=== PATIENT | male | born 1990 | race African-American/Black ===

== ENCOUNTER 2016-12-28 13:19 | Emergency (ER) | payer SELFPAY ==
[~2016-12-28] VITALS: Ht 177.8 cm; Wt 75.0 kg
[2016-12-28 13:20] VITALS: BP 134/76; PULSE 94; RESP 16; TEMP 98.6; O2SAT 98
[2016-12-28] MEDS ORDERED: BACT800T5 PO (14:59)
[2016-12-28] MEDS ORDERED: CEPH-460 PO (14:59)
--- NOTE | 2016-12-28 15:00 | PD ---
HPI . Left thigh abscess Chief Complaint: Bite or Sting Time Seen by Provider: 14:51 Travel History International Travel<30 days: No Contact w/Intl Traveler<30days: No Traveled to known affect area: No History of Present Illness HPI 26-year-old male patient presents emergency department for evaluation of a left thigh abscess. Patient reports that it started as a bug bite couple days ago. Patient denies any fevers, chills, malaise. Patient denies any chest pain, shortness breath. Patient denies any abdominal pain, nausea, vomiting or diarrhea. PFSH Social History Alcohol Use: No Tobacco Use: No Substance Use: No Allergies-Medications (Allergen,Severity, Reaction): Coded Allergies: No Known Allergies (Unverified , 12/28/16) Reported Meds & Prescriptions Reported Meds & Active Scripts Active Keflex (Cephalexin) 500 Mg Capsule 500 Mg PO Q6H 10 Days Bactrim DS (Sulfamethoxazole-Trimethoprim) 800-160 Mg Tab 1 Tab PO BID 10 Days Review of Systems Except as stated in HPI: all other systems reviewed are Neg Physical Exam Narrative GENERAL: Well-nourished, well-developed 26-year-old male patient in no acute distress. Nontoxic appearing. SKIN: There is an indurated area in the left thigh which measures about 3 cm in diameter. It is fluctuant with purulent drainage coming from the center. There is a zone of inflammation around it but no lymphangitis. HEAD: Normocephalic. Atraumatic. EYES: No scleral icterus. No injection or drainage. NECK: Supple, trachea midline. No JVD or lymphadenopathy. CARDIOVASCULAR: Regular rate and rhythm without murmurs, gallops, or rubs. RESPIRATORY: Breath sounds equal bilaterally. No accessory muscle use. GASTROINTESTINAL: Abdomen soft, non-tender, nondistended. MUSCULOSKELETAL: No cyanosis, or edema. Data Data Last Documented VS Vital Signs Date Time Temp Pulse Resp B/P (MAP) Pulse Ox O2 Delivery O2 Flow Rate FiO2 12/28/16 15:07 12/28/16 13:20 98.6 94 16 98 Orders Orders Wound Culture And Gram Stain (12/28/16 15:00) MDM Medical Decision Making Medical Screen Exam Complete: Yes Emergency Medical Condition: Yes Differential Diagnosis Differential diagnoses include but not limited to cellulitis, abscess, laceration, abrasion Narrative Course 26-year-old male patient presents emergency department for evaluation of his abscess to the left inner thigh that is approximately 3 cm in diameter. There is an area of fluctuation that is draining purulent drainage from the center. Wound culture is obtained and sent to lab. Patient denies any major medical history. Patient is afebrile. Patient is treated with Keflex and Bactrim and discharged home with instructions to follow-up with his primary care or return to the emergency Department with any worsening condition. Diagnosis Primary Impression: Abscess Referrals: Primary Care Physician Patient Instructions: Abscess (ED), General Instructions Additional Instructions: Please return to emergency department if your symptoms return or worsen. Follow up with your primary care provider. Take medications as prescribed. Warm moist compress to the area may help facilitate drainage. May take ibuprofen as needed for pain or fevers. Med/Other Pt SpecificInfo: Prescription(s) given Scripts Cephalexin (Keflex) 500 Mg Capsule 500 MG PO Q6H for Infection for 10 Days, #40 CAP 0 Refills Prov: Marychuy Guerin 12/28/16 Sulfamethoxazole-Trimethoprim (Bactrim DS) 800-160 Mg Tab 1 TAB PO BID for Infection for 10 Days, #20 TAB 0 Refills Prov: Marychuy Guerin 12/28/16 Disposition: 01 DISCHARGE HOME Condition: Stable Marychuy Guerin Dec 28, 2016 15:00
== END 2016-12-28 15:10 | disposition home or self-care (01) ==
LOC: NEPK 13:19
DX: L02.416 Cutaneous abscess of left lower limb (principal); B95.62 Methicillin resistant Staphylococcus aureus infection as the cause of diseases classified elsewhere
CPT/HCPCS: 86403; 87070; 87185; 87186; 99284

== ENCOUNTER 2017-01-05 19:26 | Emergency (ER) | payer SELFPAY ==
[~2017-01-05] VITALS: Ht 177.8 cm; Wt 70.0 kg
[~2017-01-05 19:26] MED LIST: BACT800T5 PO; CEPH-460 PO
[2017-01-05 19:27] VITALS: BP 144/89; PULSE 93; RESP 16; TEMP 99; O2SAT 100
--- NOTE | 2017-01-05 20:04 | PD ---
HPI Chief Complaint: Skin Problem Time Seen by Provider: 19:46 Travel History International Travel<30 days: No Contact w/Intl Traveler<30days: No Traveled to known affect area: No History of Present Illness HPI 26-year-old white male returns to the ER for recheck of the left leg abscess. He states that the area has opened up and drained. He is taking only the one antibiotic as he could not afford the second antibiotic. He denies any fever chills. He states that there is no longer any purulent drainage. He still has a hole in his leg. Symptoms are mild. PFSH Past Medical History Medical History: Denies Significant Hx Tetanus Vaccination: Unknown Social History Alcohol Use: Yes (RARE) Tobacco Use: Yes (1/2 PPD) Substance Use: No Allergies-Medications (Allergen,Severity, Reaction): Coded Allergies: No Known Allergies (Unverified , 01/05/17) Reported Meds & Prescriptions Reported Meds & Active Scripts Active Keflex (Cephalexin) 500 Mg Capsule 500 Mg PO Q6H 10 Days Bactrim DS (Sulfamethoxazole-Trimethoprim) 800-160 Mg Tab 1 Tab PO BID 10 Days Review of Systems General / Constitutional: No: Fever Eyes: No: Visual changes HENT: No: Headaches Cardiovascular: No: Chest Pain or Discomfort Respiratory: No: Shortness of Breath Gastrointestinal: No: Abdominal Pain Genitourinary: No: Dysuria Musculoskeletal: No: Pain Skin: No Rash Neurologic: No: Weakness Psychiatric: No: Depression Endocrine: No: Polydipsia Hematologic/Lymphatic: No: Easy Bruising Physical Exam Narrative GENERAL: This is a well-nourished, well-developed patient, in no apparent distress. SKIN: No rashes, ecchymoses or lesions. Warm and dry. HEAD: Atraumatic. Normocephalic. EYES: PERRL, EOMI, no discharge or injection. No scleral icterus. EARS: Clear NOSE: Nasal turbinates appear normal. THROAT: Mucosa pink and moist. Airway patent. NECK: Trachea midline. supple, moves head freely. LUNGS: Clear to auscultation. CV: Regular in rhythm. ABDOMEN: Soft nontender. EXT: No clubbing cyanosis or edema. Patient has a healing abscess to the inner aspect of his left leg mid thigh. There is a open draining healing abscess without purulence. No surrounding erythema. Only minimal tenderness. Data Data Last Documented VS Vital Signs Date Time Temp Pulse Resp B/P (MAP) Pulse Ox O2 Delivery O2 Flow Rate FiO2 01/05/17 19:27 99.0 93 16 144/89 (107) 100 Room Air MDM Medical Decision Making Medical Screen Exam Complete: Yes Emergency Medical Condition: Yes Medical Record Reviewed: Yes Differential Diagnosis MDM: High Differential diagnoses: Abscess, folliculitis, cellulitis, lymphangitis, abrasion, contact dermatitis Narrative Course This is healing abscess Diagnosis Primary Impression: healing abscess Patient Instructions: General Instructions Additional Instructions: Rest. Elevation. keep clean and dry. Warm compresses. Daily wound care with soap, water and Neosporin. Three Advil every 6 hours. Finish your antibiotics. Follow-up with a primary care doctor in one week. Return to the ER for any problems. Med/Other Pt SpecificInfo: No Change to Meds Disposition: 01 DISCHARGE HOME Condition: Stable Pawan Srinivasan Jan 05, 2017 20:04
== END 2017-01-05 20:15 | disposition home or self-care (01) ==
LOC: NEPD 19:26
DX: L02.416 Cutaneous abscess of left lower limb (principal)
CPT/HCPCS: 99281

== ENCOUNTER 2017-01-21 12:49 | Emergency (ER) | payer OTHER ==
[~2017-01-21] VITALS: Ht 177.8 cm; Wt 70.0 kg
[2017-01-21 12:50] VITALS: BP 130/80; PULSE 92; RESP 16; TEMP 98.7; O2SAT 99
[2017-01-21] MEDS ORDERED: MORPHINE SULFATE 4 MG/ML INJ IV PUSH ONE (13:45)
[2017-01-21] MEDS ORDERED: ONDANSETRON HCL 4 MG/2 ML VIAL IVP ONE (13:45)
[2017-01-21] MEDS ORDERED: SODIUM CHLORIDE 0.9% FLUSH 10 ML FLUSH IV FLUSH PRN (13:45)
--- NOTE | 2017-01-21 13:57 | PD ---
HPI . Rectal pain Chief Complaint: GI Complaint Time Seen by Provider: 13:33 Travel History International Travel<30 days: No Contact w/Intl Traveler<30days: No Traveled to known affect area: No History of Present Illness HPI Patient presents with a chief complaint of rectal pain. Onset was a week ago. He states that he had a previous perirectal abscess probably about a year ago. He states that it was drained in the operating room. He states that he has had continual leakage of purulent fluid from his rectum since that time. It just started hurting again about a week ago. He denies fever. He notes no modifying factors. He does state that he has associated constipation. He denies any nausea or vomiting and states that he is eating well. He denies any urinary tract symptoms. He rates the pain 8/10. PFSH Past Medical History Integumentary: Yes (perianal abscess) Social History Alcohol Use: Yes (RARE) Tobacco Use: Yes (1/2 PPD) Substance Use: No Allergies-Medications (Allergen,Severity, Reaction): Coded Allergies: No Known Allergies (Unverified , 01/05/17) Reported Meds & Prescriptions Reported Meds & Active Scripts Active Keflex (Cephalexin) 500 Mg Capsule 500 Mg PO Q6H 10 Days Bactrim DS (Sulfamethoxazole-Trimethoprim) 800-160 Mg Tab 1 Tab PO BID 10 Days Review of Systems Except as stated in HPI: all other systems reviewed are Neg General / Constitutional: No: Fever, Chills Gastrointestinal: Positive: Constipation, Other (anal pain), No: Nausea, Vomiting, Diarrhea, Abdominal Pain, Loss of Appetite Genitourinary: No: Urgency, Frequency, Dysuria Physical Exam Narrative GENERAL: Awake and alert and in no acute distress. SKIN: warm/dry. HEAD: Normocephalic. Atraumatic. EYES: Pupils equal and round. No scleral icterus. No injection or drainage. ENT: No nasal bleeding or discharge. Mucous membranes pink and moist. NECK: Trachea midline. Full range of motion without pain.. CARDIOVASCULAR: Regular rate and rhythm. RESPIRATORY: No accessory muscle use. Clear to auscultation. Breath sounds equal bilaterally. GASTROINTESTINAL: Abdomen soft. Nontender. Bowel sounds present. Nondistended. RECTAL: Inspection of the anus is normal. Digital exam is tender. No masses palpated. Brown stool in the rectal vault. No perirectal fluctuance. MUSCULOSKELETAL: No obvious deformities. NEUROLOGICAL: Awake and alert. No obvious cranial nerve deficits. Motor grossly within normal limits. Normal speech. PSYCHIATRIC: Appropriate mood and affect; insight and judgment normal. Data Data Last Documented VS Vital Signs Date Time Temp Pulse Resp B/P (MAP) Pulse Ox O2 Delivery O2 Flow Rate FiO2 01/21/17 14:54 18 01/21/17 12:50 98.7 92 130/80 (97) 99 Orders Orders Basic Metabolic Panel (Bmp) (01/21/17 13:45) Complete Blood Count With Diff (01/21/17 13:45) Ct Abd/Pel W Iv Contrast(Rout) (01/21/17 13:45) Iv Access Insert/Monitor (01/21/17 13:45) Morphine Inj (Morphine Inj) (01/21/17 13:45) Ondansetron Inj (Zofran Inj) (01/21/17 13:45) Sodium Chloride 0.9% Flush (Ns Flush) (01/21/17 13:45) Iohexol 350 Inj (Omnipaque 350 Inj) (01/21/17 14:33) Labs Laboratory Tests Test 01/21/17 13:45 White Blood Count 1.5 TH/MM3 Red Blood Count 4.55 MIL/MM3 Hemoglobin 12.0 GM/DL Hematocrit 36.4 % Mean Corpuscular Volume 80.0 FL Mean Corpuscular Hemoglobin 26.4 PG Mean Corpuscular Hemoglobin Concent 33.0 % Red Cell Distribution Width 16.2 % Platelet Count 149 TH/MM3 Mean Platelet Volume 8.1 FL Neutrophils (%) (Auto) 68.8 % Lymphocytes (%) (Auto) 15.1 % Monocytes (%) (Auto) 14.7 % Eosinophils (%) (Auto) 0.8 % Basophils (%) (Auto) 0.6 % Neutrophils # (Auto) 1.1 TH/MM3 Lymphocytes # (Auto) 0.2 TH/MM3 Monocytes # (Auto) 0.2 TH/MM3 Eosinophils # (Auto) 0.0 TH/MM3 Basophils # (Auto) 0.0 TH/MM3 CBC Comment AUTO DIFF Differential Total Cells Counted 100 Neutrophils % (Manual) 68 % Band Neutrophils % 2 % Lymphocytes % 14 % Monocytes % 16 % Neutrophils # (Manual) 1.1 TH/MM3 Differential Comment FINAL DIFF MANUAL Platelet Estimate LOW Platelet Morphology Comment NORMAL Tear Drop Cells 1+ Ovalocytes 3+ Blood Urea Nitrogen 10 MG/DL Creatinine 0.78 MG/DL Random Glucose 76 MG/DL Calcium Level 8.4 MG/DL Sodium Level 139 MEQ/L Potassium Level 3.4 MEQ/L Chloride Level 104 MEQ/L Carbon Dioxide Level 28.4 MEQ/L Anion Gap 7 MEQ/L Estimat Glomerular Filtration Rate 145 ML/MIN [facility] Medical Decision Making Medical Screen Exam Complete: Yes Emergency Medical Condition: Yes Medical Record Reviewed: Yes (the patient has only been seen here before for peripheral abscesses. He has not been seen at this facility for perirectal issues.) Differential Diagnosis Differential diagnosis of rectal pain includes but is not limited to external hemorrhoid,, rectal foreign body, impaction Narrative Course Patient presents with a chief complaint of rectal pain. His anus looks normal. He does have tenderness on digital exam. His stool is Hemoccult positive. Basic labs have been ordered as well as a CT of his abdomen and pelvis. Disposition will be based upon the results of these tests. Negative CT abdomen/pelvis with contrast. CBC & BMP Diagram 01/21/17 13:45 Calcium Level 8.4 L HemaPrompt Point of Care Internal Pos. & Neg. Controls: Passed Fecal Specimen Occult Blood: Positive Diagnosis Primary Impression: Rectal pain Additional Impression: Neutropenia Qualified Codes: D70.9 - Neutropenia, unspecified Referrals: [facility] Med/Other Pt SpecificInfo: Prescription(s) given Scripts Dibucaine Rectal (Nupercainal Rectal) 1 % Oin 1 APPLIC RECTAL DIRECTED Y for PAIN/ITCHING, #1 TUBE 0 Refills Prov: Emily Bray MD 01/21/17 Disposition: DISCHARGE HOME Condition: Stable Emily Bray MD Jan 21, 2017 13:57
[2017-01-21 14:10] LABS: AUTOMATED NEUTROPHIL # 1.1 TH/MM3 (1.8-7.7); BASOPHIL % 0.6 % (0.0-2.0); EOSINOPHIL % 0.8 % (0.0-4.0); HEMATOCRIT 36.4 % (39.0-51.0); LYMPH % 15.1 % (9.0-44.0); LYMPHOCYTE # 0.2 TH/MM3 (1.0-4.8); MEAN CORPUSCULAR HEMOGLOBIN 26.4 PG (27.0-34.0); MONO % 14.7 % (0.0-8.0); NEUT % 68.8 % (16.0-70.0); PLATELET COUNT 149 TH/MM3 (150-450); RED BLOOD COUNT 4.55 MIL/MM3 (4.50-5.90); RED CELL DISTRIBUTION WIDTH 16.2 % (11.6-17.2); WHITE BLOOD COUNT 1.5 TH/MM3 (4.0-11.0)
[2017-01-21 14:14] LABS: HEMO FLAGS AUTO DIFF
[2017-01-21 14:15] LABS: BICARBONATE 28.4 MEQ/L (21.0-32.0); POTASSIUM 3.4 MEQ/L (3.5-5.1)
[2017-01-21] MEDS ORDERED: IOHEXOL 350 MG/ML 10 ML VIAL (for RAD DIAG) IVCONTRAST ONE (14:33)
[2017-01-21 14:52] LABS: BANDS 2 % (0-6); NEUTROPHIL # MANUAL DIFF 1.1 TH/MM3 (1.8-7.7); OVALOCYTES 3+ (NORMAL); PLATELET ESTIMATE SMEAR LOW (NORMAL); PLATELET MORPHOLOGY NORMAL (NORMAL); POLYS (SEG NEUTROPHILS) 68 % (16-70); SCAN/DIFF FINAL DIFF MANUAL; TEARDROP RBCS 1+ (NORMAL); WBC DIFF SAMPLE 100
[2017-01-21 14:54] VITALS: RESP 18
--- NOTE | 2017-01-21 15:12 | RADRPT ---
EXAM DATE/TIME: 01/21/2017 14:22 [facility] COMPARISON: No previous studies available for comparison. INDICATIONS : Abdomen pain. IV CONTRAST: 70 cc Omnipaque 350 (iohexol) IV ORAL CONTRAST: No oral contrast ingested. RADIATION DOSE: 6.64 CTDIvol (mGy) MEDICAL HISTORY : None SURGICAL HISTORY : None. ENCOUNTER: Initial ACUITY: 1 day PAIN SCALE: 5/10 LOCATION: Bilateral abdomen TECHNIQUE: Volumetric scanning of the abdomen and pelvis was performed. Using automated exposure control and ad justment of the mA and/or kV according to patient size, radiation dose was kept as low as reasonably achievable to obtain optimal diagnostic quality images. DICOM format image data is available electro nically for review and comparison. FINDINGS: LOWER LUNGS: The visualized lower lungs are clear. LIVER: Homogeneous density without lesion. There is no dilation of the biliary tree. No calcified gallston es. SPLEEN: Normal size without lesion. PANCREAS: Within normal limits. KIDNEYS: Normal in size and shape. There is no mass, stone or hydronephrosis. ADRENAL GLANDS: Within normal limits. VASCULAR: There is no aortic aneurysm. BOWEL/MESENTERY: No dilated loops of small or large bowel. No evidence of free fluid. ABDOMINAL WALL: Within normal limits. RETROPERITONEUM: There is no lymphadenopathy. BLADDER: No wall thickening or mass. REPRODUCTIVE: Within normal limits. INGUINAL: There is no lymphadenopathy or hernia. MUSCULOSKELETAL: Within normal limits for patient age. CONCLUSION: Negative CT abdomen/pelvis with contrast. Ross Benjamin MD on January 21, 2017 at 15:09 Board Certified Radiologist. This report was verified electronically.
[2017-01-21] MEDS ORDERED: DIBU10OI RECTAL (15:30)
[2017-01-21 16:08] VITALS: BP 112/64
== END 2017-01-21 16:40 | disposition home or self-care (01) ==
LOC: NEPC 12:49
DX: K62.89 Other specified diseases of anus and rectum (principal); D70.9 Neutropenia, unspecified
CPT/HCPCS: 74177; 80048; 85007; 85027; 96374; 96375; 99285; J2270; J2405; Q9967

== ENCOUNTER 2017-05-22 17:21 | Emergency (ER) | payer SELFPAY ==
[~2017-05-22] VITALS: Ht 177.8 cm; Wt 70.9 kg
[~2017-05-22 17:21] MED LIST changes: +DIBU10OI RECTAL
[2017-05-22 18:05] VITALS: BP 150/79; PULSE 96; RESP 18; TEMP 98.7; O2SAT 99
[2017-05-22] MEDS ORDERED: PENI500T PO (19:02)
[2017-05-22] MEDS ORDERED: PERI0.126 SWISH-SPIT (19:02)
--- NOTE | 2017-05-22 19:11 | PD ---
HPI Chief Complaint: Oral / Dental Pain or Problem Time Seen by Provider: 18:51 Travel History International Travel<30 days: No Contact w/Intl Traveler<30days: No Traveled to known affect area: No History of Present Illness HPI 26-year-old male presents to the emergency room for evaluation of dental pain for the past 2 months. Patient states his tooth broke while he was eating so he yanked on the rest of the loose tooth 2 months ago and removed most of it. Since then he has had a hole in his gums with retained root. Patient reports worsening pain over the past several days. Reports "low-grade fevers" over the past couple days. He has not actually taken his temperature but states he could have been too high because he was still able to move. Patient states that the gums bleed every morning causing him to spit out blood. PFSH Past Medical History Integumentary: Yes (perianal abscess) Social History Alcohol Use: Yes (RARE) Tobacco Use: Yes (1/2 PPD) Substance Use: No Allergies-Medications (Allergen,Severity, Reaction): Coded Allergies: No Known Allergies (Unverified , 01/05/17) Reported Meds & Prescriptions Reported Meds & Active Scripts Active Peridex Liq (Chlorhexidine Gluconate (Mouth) Liq) 0.12% Soln 15 Ml SWISH-SPIT BID Penicillin V Potassium 500 Mg Tab 500 Mg PO Q8H 7 Days Nupercainal Rectal (Dibucaine) 1 % Oin 1 Applic RECTAL DIRECTED PRN Keflex (Cephalexin) 500 Mg Capsule 500 Mg PO Q6H 10 Days Bactrim DS (Sulfamethoxazole-Trimethoprim) 800-160 Mg Tab 1 Tab PO BID 10 Days Review of Systems Except as stated in HPI: all other systems reviewed are Neg Physical Exam Narrative GENERAL: Well-nourished, well-developed male no acute distress. Afebrile. Ambulatory. SKIN: Focused skin assessment warm/dry. HEAD: Normocephalic. EYES: No scleral icterus. No injection or drainage. NECK: Supple, trachea midline. No JVD or lymphadenopathy. DENTAL: No loose or chipped teeth. No malocclusion. Significant decay throughout. Gingiva is erythematous and friable. Tooth #32 is rotten and tender to palpation. CARDIOVASCULAR: Regular rate and rhythm without murmurs, gallops, or rubs. RESPIRATORY: Breath sounds equal bilaterally. No accessory muscle use. Data Data Last Documented VS Vital Signs Date Time Temp Pulse Resp B/P (MAP) Pulse Ox O2 Delivery O2 Flow Rate FiO2 05/22/17 18:05 98.7 96 18 150/79 (102) 99 MDM Medical Decision Making Medical Screen Exam Complete: Yes Emergency Medical Condition: Yes Medical Record Reviewed: Yes Differential Diagnosis Abscess, gingivitis, poor dentition Narrative Course 26-year-old otherwise healthy male presents for dental pain for the past 2 months. States he pulled out a rotten tooth 2 months ago and has had gingival bleeding since then. He has not seen a dentist. Physical exam reveals tooth # 32 to be decayed with retained tooth and surrounding erythema. Tender to palpation. No obvious abscess or edema. No Cl's angina. Patient treated with Peridex and penicillin. Told to follow-up with a dentist or return for worsening symptoms. He understands and agrees to plan. Diagnosis Primary Impression: Dental abscess Referrals: Primary Care Physician Additional Instructions: Rest and drink plenty of fluids. Penicillin and Peridex as directed. Follow-up with a dentist. Return to the emergency room for worsening symptoms. Med/Other Pt SpecificInfo: Prescription(s) given Scripts Chlorhexidine Gluconate (Mouth) Liq (Peridex Liq) 0.12% Soln 15 ML SWISH-SPIT BID, #473 ML 0 Refills Prov: Chris Hewitt MD 05/22/17 Penicillin V Potassium (Penicillin V Potassium) 500 Mg Tab 500 MG PO Q8H for Infection for 7 Days, #21 TAB 0 Refills Prov: Chris Hewitt MD 05/22/17 Disposition: 01 DISCHARGE HOME Condition: Stable Pricila Robledo May 22, 2017 19:11
== END 2017-05-22 19:24 | disposition home or self-care (01) ==
LOC: NED 17:21 → NEPK 19:24
DX: K04.7 Periapical abscess without sinus (principal); F17.200 Nicotine dependence, unspecified, uncomplicated
CPT/HCPCS: 99283

== ENCOUNTER 2017-06-13 09:17 | Emergency (ER) | payer SELFPAY ==
[~2017-06-13] VITALS: Ht 177.8 cm; Wt 71.0 kg
[~2017-06-13 09:17] MED LIST changes: +PENI500T PO; +PERI0.126 SWISH-SPIT
[2017-06-13 09:36] VITALS: BP 150/86; PULSE 127; RESP 18; TEMP 99.6; O2SAT 93
--- NOTE | 2017-06-13 09:44 | PD ---
HPI Chief Complaint: Respiratory Symptoms Time Seen by Provider: 09:40 Travel History International Travel<30 days: No Contact w/Intl Traveler<30days: No Traveled to known affect area: No History of Present Illness HPI She comes in with a few days history of cough, nonproductive, however associated with some subjective fevers, worse seems at nighttime. However also throughout the day he started to develop some constant left-sided chest area pain, described as sharp, worse with deep breath, or with coughing, rated as 8 out of 10 only during those times of coughing or deep breathing. No alleviating factors. PFSH Past Medical History Integumentary: Yes (perianal abscess) Social History Alcohol Use: Yes (RARE) Tobacco Use: Yes (1/2 PPD) Substance Use: No Allergies-Medications (Allergen,Severity, Reaction): Coded Allergies: No Known Allergies (Unverified , 06/13/17) Reported Meds & Prescriptions Reported Meds & Active Scripts Active Penicillin V Potassium 500 Mg Tab 500 Mg PO Q8H 7 Days Review of Systems General / Constitutional: No: Fever Eyes: No: Visual changes HENT: No: Headaches Cardiovascular: Positive: Chest Pain or Discomfort Respiratory: Positive: Cough, Shortness of Breath Gastrointestinal: No: Abdominal Pain Genitourinary: No: Dysuria Musculoskeletal: No: Pain Skin: No Rash Neurologic: No: Weakness Psychiatric: No: Depression Endocrine: No: Polydipsia Hematologic/Lymphatic: No: Easy Bruising Physical Exam Narrative GENERAL: SKIN: Warm and dry. HEAD: Atraumatic. Normocephalic. EYES: Pupils equal and round. No scleral icterus. No injection or drainage. ENT: No nasal bleeding or discharge. Mucous membranes pink and moist. NECK: Trachea midline. No JVD. CARDIOVASCULAR: Regular rate and rhythm. RESPIRATORY: No accessory muscle use. Clear to auscultation. Breath sounds equal bilaterally. GASTROINTESTINAL: Abdomen soft, non-tender, nondistended. MUSCULOSKELETAL: Extremities without clubbing, cyanosis, or edema. No obvious deformities. NEUROLOGICAL: Awake and alert. No obvious cranial nerve deficits. Motor grossly within normal limits. Five out of 5 muscle strength in the arms and legs. Normal speech. PSYCHIATRIC: Appropriate mood and affect; insight and judgment normal. Data Data Last Documented VS Vital Signs Date Time Temp Pulse Resp B/P (MAP) Pulse Ox O2 Delivery O2 Flow Rate FiO2 06/13/17 09:36 99.6 127 18 150/86 (107) 93 Orders Orders Chest, Pa & Lat (06/13/17 09:44) Levofloxacin (Levaquin) (06/13/17 10:30) Guaifen-Cod 200-20 Mg/10ml Liq (Robituss (06/13/17 10:30) Ketorolac Inj (Toradol Inj) (06/13/17 10:30) MDM Medical Decision Making Medical Screen Exam Complete: Yes Emergency Medical Condition: Yes Medical Record Reviewed: Yes Differential Diagnosis Pneumonia versus viral syndrome versus bronchitis versus bronchospasm Narrative Course Patient only has a history of smoking half a pack a day, right-handed orthopedic surgery, and MRSA infection in the leg back in 2017 Diagnosis Primary Impression: RLL pneumonia Qualified Codes: J18.1 - Lobar pneumonia, unspecified organism Patient Instructions: Bacterial Pneumonia (ED), General Instructions Scripts Naproxen DR (Naproxen EC) 375 Mg Tabdr 375 MG PO BID, #20 TAB 0 Refills Prov: Artem Cardona MD 06/13/17 Guaifenesin-Codeine Liq (Guaiatussin AC Liq) 100-10 Mg/5 Ml Syrp 10 ML PO Q6H Y for COUGH, #160 ML Prov: Artem Cardona MD 06/13/17 Ciprofloxacin (Cipro) 500 Mg Tab 500 MG PO BID for Infection for 10 Days, #20 TAB 0 Refills Prov: Artem Cardona MD 06/13/17 Disposition: 01 DISCHARGE HOME Condition: Stable Artem Cardona MD Jun 13, 2017 09:44
--- NOTE | 2017-06-13 10:09 | RADRPT ---
EXAM DATE/TIME: 06/13/2017 09:55 [facility] COMPARISON: No previous studies available for comparison. INDICATIONS : Cough and fever. MEDICAL HISTORY : None. SURGICAL HISTORY : None. ENCOUNTER: Initial ACUITY: 2 weeks PAIN SCORE: 2/10 LOCATION: Bilateral chest FINDINGS: Scoliosis with minimal peribronchial thickening and only parenchymal changes right base. Peribronchi al thickening on the left. The heart and pulmonary vascularity are normal. CONCLUSION: Inflammatory changes as above.. Stas Joseph MD FACR on June 13, 2017 at 10:06 Board Certified Radiologist. This report was verified electronically.
[2017-06-13] MEDS ORDERED: guaiFENesin/CODEINE SYRUP 200 MG/20 MG/10 ML CUP PO ONE (10:30)
[2017-06-13] MEDS ORDERED: LEVOFLOXACIN 750 MG TAB PO ONE (10:30)
[2017-06-13] MEDS ORDERED: KETOROLAC TROMETHAMINE 60 MG/2 ML (IM) VIAL IM ONE (10:30)
[2017-06-13] MEDS ORDERED: NAPR375T4 PO (11:06)
[2017-06-13] MEDS ORDERED: GUAISYP5 PO (11:06)
[2017-06-13] MEDS ORDERED: CIPR-9 PO (11:06)
[2017-06-13 11:16] VITALS: TEMP 99
== END 2017-06-13 11:38 | disposition home or self-care (01) ==
LOC: NEPD 09:17
DX: J18.1 Lobar pneumonia, unspecified organism (principal); F17.210 Nicotine dependence, cigarettes, uncomplicated
CPT/HCPCS: 71046; 96372; 99283; J1885